=== PATIENT | female | born 1955 | race Caucasian/White ===

== ENCOUNTER 2021-01-01 11:00 | Inpatient (IN) ==
[2021-01-01] MEDS ORDERED: Mag Hydrox/Al Hydrox/Simeth 30 ML UDC PO PRN (13:00)
[2021-01-01] MEDS ORDERED: MOM Conc 10 ML UD.LIQ PO PRN (13:00)
[2021-01-01] MEDS ORDERED: Gadolinium Contrast Agent (WT Based) IV PRN (13:00)
[2021-01-01] MEDS ORDERED: Naloxone 0.4 MG/ML INJ IVP PRN (13:00)
[2021-01-01] MEDS ORDERED: D5% in Water 1,000 ML IVC PRN (13:00)
[2021-01-01] MEDS ORDERED: Ondansetron ODT 4 MG TAB.RAPDIS SL PRN (13:00)
[2021-01-01] MEDS ORDERED: Dextrose Gel 15 GM/37.5 ML TUBE PO PRN ×2 (13:00)
[2021-01-01] MEDS ORDERED: *HR* Dextrose 50 % in Water (Vial) 50 ML VIAL IVP PRN (13:00)
[2021-01-01] MEDS: Insulin LISPRO 300 UNITS/3 ML VIAL SUBQ SCH ×3 (14:11→19:58)
[2021-01-01] MEDS: Vancomycin 2,000 MG/520 ML IV.SOLN IVPB SCH (16:44)
[2021-01-01] MEDS: Piperacillin/Tazobactam 3.375 GM in 0.9 % Sodium Chloride Mini Bag 100 ML IVPB SCH ×2 (19:17→22:24)
[2021-01-01] MEDS ORDERED: Melatonin 3 MG TABLET PO PRN (21:00)
[2021-01-02] MEDS: Gabapentin 300 MG CAPSULE PO SCH ×4 (00:47→20:25)
[2021-01-02] MEDS: Vancomycin 2,000 MG/520 ML IV.SOLN IVPB SCH ×2 (02:51→18:41)
[2021-01-02] MEDS: Piperacillin/Tazobactam 3.375 GM in 0.9 % Sodium Chloride Mini Bag 100 ML IVPB SCH (05:14)
[2021-01-02] MEDS: *HR* Enoxaparin 40 MG/0.4 ML SYRINGE SQ SCH (05:15)
[2021-01-02 06:05] LABS: Hematocrit 33.5 % (35.3-44.9); Hemoglobin 11.1 g/dL (11.5-15.4); Mean Corpuscular HGB Conc 33.1 g/dL (31.6-35.5); Mean Corpuscular Hemoglobin 32.9 pg (28.0-33.3); Mean Corpuscular Volume 99.4 fL (83.0-100.0); Mean Platelet Volume 11.6 fL (9.4-12.4); Platelet Count 127 K/mcL (140-400); Red Blood Count 3.37 M/mcL (3.82-4.97); Red Cell Distribution Width 14.9 % (11.5-14.5); White Blood Count 6.2 K/mcL (4.3-11.1)
[2021-01-02 06:07] LABS: Estimated Average Glucose 186 mg/dl; Hemoglobin A1C 8.1 %
[2021-01-02 06:22] LABS: Chol/HDL Ratio 5.5 (0-4.9); Cholesterol 109 mg/dL (< 200); HDL Cholesterol 20 mg/dL (40-59); LDL Cholesterol,Calculated 52 mg/dL (< 100); Triglycerides 187 mg/dL (< 150)
[2021-01-02 06:23] LABS: Blood Urea Nitrogen 26 mg/dL (8-23)
[2021-01-02] MEDS: Acetaminophen 325 MG TABLET PO PRN ×2 (06:32→20:26)
[2021-01-02 08:05] LABS: C-Reactive Protein < 5 mg/L (Less than 10)
[2021-01-02] MEDS: Insulin LISPRO 300 UNITS/3 ML VIAL SUBQ SCH ×4 (09:00→20:34)
[2021-01-02] MEDS ORDERED: tiZANidine 4 MG TABLET PO PRN (10:17)
[2021-01-02 11:05] LABS: Basophils % 0.5 %; Eosinophils # 0.2 K/mcL (0.0-0.6); Eosinophils % 2.7 %; Hematocrit 38.4 % (35.3-44.9); Hemoglobin 12.1 g/dL (11.5-15.4); Immature Granulocytes % 0.3 % (0-4); Lymphocytes # 0.8 K/mcL (0.6-4.6); Lymphocytes % 13.5 %; Mean Corpuscular HGB Conc 31.5 g/dL (31.6-35.5); Mean Corpuscular Hemoglobin 31.7 pg (28.0-33.3); Mean Corpuscular Volume 100.5 fL (83.0-100.0); Mean Platelet Volume 11.6 fL (9.4-12.4); Monocytes # 0.4 K/mcL (0.0-1.3); Monocytes % 6.8 %; Neutrophils # 4.7 K/mcL (1.6-8.9); Platelet Count 137 K/mcL (140-400); Red Blood Count 3.82 M/mcL (3.82-4.97); Red Cell Distribution Width 14.7 % (11.5-14.5); Segmented Neutrophils % 76.2 %; White Blood Count 6.2 K/mcL (4.3-11.1)
[2021-01-02 11:23] LABS: Calcium 10.2 mg/dL (8.6-10.3); Potassium 4.2 mEq/L (3.5-5.1)
[2021-01-02] MEDS: Budesonide/Formoterol 160/4.5 1 PUFF INH IH SCH ×2 (11:57→20:18)
[2021-01-02] MEDS: Insulin DETEMIR 100 UNIT/ML X5UNITS SUBQ SCH ×2 (12:58→20:32)
[2021-01-02] MEDS: Cefepime HCl 2,000 MG in 0.9 % Sodium Chloride Mini Bag 100 ML IVPB SCH (17:54)
[2021-01-02] MEDS: traZODone 50 MG TABLET PO SCH (20:25)
[2021-01-02] MEDS: carvediloL 25 MG TABLET PO SCH (20:25)
[2021-01-03] MEDS: Cefepime HCl 2,000 MG in 0.9 % Sodium Chloride Mini Bag 100 ML IVPB SCH ×2 (00:29→08:26)
[2021-01-03 03:42] LABS: Basophils % 0.3 %; Eosinophils # 0.2 K/mcL (0.0-0.6); Eosinophils % 3.3 %; Hematocrit 34.8 % (35.3-44.9); Hemoglobin 11.6 g/dL (11.5-15.4); Immature Granulocytes % 0.2 % (0-4); Immature Platelets 5.7 % (1.1-6.1); Mean Corpuscular HGB Conc 33.3 g/dL (31.6-35.5); Mean Corpuscular Hemoglobin 32.5 pg (28.0-33.3); Mean Corpuscular Volume 97.5 fL (83.0-100.0); Mean Platelet Volume 11.6 fL (9.4-12.4); Monocytes # 0.6 K/mcL (0.0-1.3); Monocytes % 9.2 %; Neutrophils # 4.2 K/mcL (1.6-8.9); Platelet Count 137 K/mcL (140-400); Red Blood Count 3.57 M/mcL (3.82-4.97); Red Cell Distribution Width 14.4 % (11.5-14.5); White Blood Count 6.1 K/mcL (4.3-11.1)
[2021-01-03 03:53] LABS: BUN/Creatinine Ratio 19 (6-26); Blood Urea Nitrogen 20 mg/dL (8-23); Calcium 10.3 mg/dL (8.6-10.3); Carbon Dioxide 24 mEq/L (23-29); Chloride 105 mEq/L (98-107); Glucose 300 mg/dL (70-105); Magnesium 1.6 mg/dL (1.6-2.6); Osmolality,Calculated 292 (280-300); Potassium 4.4 mEq/L (3.5-5.1); Sodium 134 mEq/L (136-145); eGFR For African Americans > 60 (> 60); eGFR For Non-African Americans 53 (> 60)
[2021-01-03] MEDS: Vancomycin 2,000 MG/520 ML IV.SOLN IVPB SCH (05:08)
[2021-01-03] MEDS: Gabapentin 300 MG CAPSULE PO SCH ×4 (05:08→20:38)
[2021-01-03] MEDS: *HR* Enoxaparin 40 MG/0.4 ML SYRINGE SQ SCH (05:26)
[2021-01-03] MEDS: Budesonide/Formoterol 160/4.5 1 PUFF INH IH SCH ×2 (07:49→22:42)
[2021-01-03] MEDS: allopurinoL 300 MG TABLET PO SCH (08:27)
[2021-01-03] MEDS: lisinopriL 20 MG TABLET PO SCH (08:27)
[2021-01-03] MEDS: Magnesium Oxide 400 MG TABLET PO SCH (08:27)
[2021-01-03] MEDS: Isosorbide MONOnitrate (24 HR) 60 MG TAB.ER.24H PO SCH (08:27)
[2021-01-03] MEDS: Furosemide 40 MG TABLET PO SCH (08:28)
[2021-01-03] MEDS: Insulin LISPRO 300 UNITS/3 ML VIAL SUBQ SCH ×4 (08:28→20:39)
[2021-01-03] MEDS: carvediloL 25 MG TABLET PO SCH ×2 (08:28→20:38)
[2021-01-03] MEDS: Acetaminophen 325 MG TABLET PO PRN (09:00)
[2021-01-03] MEDS ORDERED: *HR* Labetalol 20 MG/4 ML SYRINGE IVP PRN (09:25)
[2021-01-03] MEDS: Insulin DETEMIR 100 UNIT/ML X5UNITS SUBQ SCH ×2 (09:35→20:39)
[2021-01-03] MEDS: Doxycycline 100 MG CAPSULE PO SCH ×2 (14:41→20:38)
[2021-01-03] MEDS ORDERED: Insulin Human Regular 5 UNIT in 0.9 % Sodium Chloride 10 ML IV ONE (14:45)
[2021-01-03] MEDS ORDERED: Vancomycin 1,500 MG/265 ML IV.SOLN IVPB SCH (15:00)
[2021-01-03] MEDS ORDERED: Ammonium Lactate 30 APPL/225 GM BOTTLE TP PRN (16:37)
[2021-01-03] MEDS: traZODone 50 MG TABLET PO SCH (20:38)
[2021-01-03] MEDS: Triamcinolone Acet 0.1% CRM 15 GM TUBE TP SCH (20:40)
[2021-01-03] MEDS ORDERED: Artificial Tears SOLN 15 ML BOTTLE BOTH EYES SCH (21:00)
[2021-01-04 01:28] LABS: Hematocrit 34.3 % (35.3-44.9); Hemoglobin 11.1 g/dL (11.5-15.4); Mean Corpuscular HGB Conc 32.4 g/dL (31.6-35.5); Mean Corpuscular Hemoglobin 31.4 pg (28.0-33.3); Mean Corpuscular Volume 96.9 fL (83.0-100.0); Mean Platelet Volume 11.7 fL (9.4-12.4); Platelet Count 132 K/mcL (140-400); Red Blood Count 3.54 M/mcL (3.82-4.97); Red Cell Distribution Width 14.3 % (11.5-14.5)
[2021-01-04 01:45] LABS: BUN/Creatinine Ratio 22 (6-26); Blood Urea Nitrogen 23 mg/dL (8-23); Calcium 10.5 mg/dL (8.6-10.3); Carbon Dioxide 26 mEq/L (23-29); Chloride 101 mEq/L (98-107); Glucose 224 mg/dL (70-105); Osmolality,Calculated 291 (280-300); Potassium 4.1 mEq/L (3.5-5.1); Sodium 135 mEq/L (136-145); eGFR For African Americans > 60 (> 60); eGFR For Non-African Americans 53 (> 60)
[2021-01-04] MEDS: *HR* Enoxaparin 40 MG/0.4 ML SYRINGE SQ SCH (04:41)
[2021-01-04] MEDS: Budesonide/Formoterol 160/4.5 1 PUFF INH IH SCH (07:27)
[2021-01-04] MEDS: Isosorbide MONOnitrate (24 HR) 60 MG TAB.ER.24H PO SCH (07:40)
[2021-01-04] MEDS: allopurinoL 300 MG TABLET PO SCH (07:40)
[2021-01-04] MEDS: Doxycycline 100 MG CAPSULE PO SCH (07:40)
[2021-01-04] MEDS: Gabapentin 300 MG CAPSULE PO SCH ×2 (07:40→14:35)
[2021-01-04] MEDS: carvediloL 25 MG TABLET PO SCH (07:41)
[2021-01-04] MEDS: lisinopriL 20 MG TABLET PO SCH (07:41)
[2021-01-04] MEDS: Furosemide 40 MG TABLET PO SCH (07:41)
[2021-01-04] MEDS: Magnesium Oxide 400 MG TABLET PO SCH (07:41)
[2021-01-04] MEDS: Insulin LISPRO 300 UNITS/3 ML VIAL SUBQ SCH ×2 (07:42→11:36)
[2021-01-04] MEDS: Insulin DETEMIR 100 UNIT/ML X5UNITS SUBQ SCH (07:43)
[2021-01-04] MEDS: Triamcinolone Acet 0.1% CRM 15 GM TUBE TP SCH (07:50)
[2021-01-04 10:38] VITALS: TEMP 97.6
[2021-01-04 15:14] VITALS: BP 160/70; PULSE 66; O2SAT 96
== END 2021-01-04 16:55 | disposition home or self-care (01) | DRG 603 ==
LOC: CDU → 3BNU 01-02 23:02
PROVIDERS: ADMIT Internal Medicine; ATTEND Internal Medicine